=== PATIENT | male | born 2005 | race Native Hawaiian/Other Pacific Islander ===

== ENCOUNTER 2024-05-03 19:35 | Emergency (ER) | payer SELFPAY ==
[2024-05-03] MEDS ORDERED: Cephalexin 500 MG Cap PO ONE (19:36)
[2024-05-03] MEDS: Cephalexin 500 MG Cap PO ONE (20:26)
== END 2024-05-03 20:54 | disposition home or self-care (01) ==
LOC: FB.ED 19:35
DX: S62.633A Displaced fracture of distal phalanx of left middle finger, initial encounter for closed fracture (principal); F17.210 Nicotine dependence, cigarettes, uncomplicated; W27.8XXA Contact with other nonpowered hand tool, initial encounter; Y93.89 Activity, other specified; Y99.0 Civilian activity done for income or pay
CPT/HCPCS: 73140-F2; 99283; A9270-GY